=== PATIENT | male | born 1965 | race Caucasian/White ===

== ENCOUNTER → 2017-08-30 10:05 | Emergency (ER) | payer OTHER ==
[2017-08-30 10:14] VITALS: BP 159/86
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
== END | disposition home or self-care (01) ==
LOC: ED 10:05
DX: B02.9 Zoster without complications (principal); F17.220 Nicotine dependence, chewing tobacco, uncomplicated
CPT/HCPCS: 99282

== ENCOUNTER 2017-09-04 14:47 | Emergency (ER) | payer OTHER ==
[2017-09-04 16:29] LABS: Hematocrit 43 % (42-52); Hemoglobin 14.3 g/dl (14.0-18.0); Mean Corpuscular HGB Conc 33 g/dl (31-36); Mean Corpuscular Hemoglobin 29 pg (27-31); Mean Corpuscular Volume 87 fL (80-94); Mean Platelet Volume 7 um3 (7.4-10.4); Red Blood Count 4.96 10^6/ul (4.0-5.4); Red Cell Distribution Width 18 % (10.5-15)
[2017-09-04 16:43] LABS: Albumin 4.2 g/dL (3.2-5.2); BUN/Creatinine Ratio 12.6 (8-20); Calcium 9.7 mg/dL (8.6-10.3); EGFR African American 67.1 (>60); EGFR Non-African American 52.1 (>60); Globulin 3.8 g/dL (2-4); Potassium 4.6 mmol/L (3.5-5.0); Total Bilirubin 0.4 mg/dL (0.2-1.0)
[2017-09-04 17:17] LABS: Erythrocyte Sed Rate 36 mm/Hr (0-20)
[2017-09-04 17:57] VITALS: BP 151/106
[2017-09-04 18:02] LABS: Urine Bilirubin Negative (Negative); Urine Glucose Negative (Negative); Urine Nitrite Negative (Negative)
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
== END 2017-09-04 17:56 | disposition home or self-care (01) ==
LOC: ED 14:47
DX: B02.9 Zoster without complications (principal); B20 Human immunodeficiency virus [HIV] disease; B02.29 Other postherpetic nervous system involvement; R21 Rash and other nonspecific skin eruption
CPT/HCPCS: 36415; 80053; 81003; 85025; 85652; 99282

== ENCOUNTER 2017-10-25 15:40 | Emergency (ER) | payer OTHER ==
[2017-10-25 16:33] VITALS: BP 131/96
--- NOTE | 2017-10-25 17:22 | UC ---
Skin Complaint HPI - HPI Summary HPI Summary: Patient presents with an unremarkable past medical history. He presents today with complaints of residual pain from shingles on his left side. He reports that the areas have healed but he continues to have pain. 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 He states that the bites itch and he would like some medication to stop some of the itching. He denies any fever, chills, chest pain abdominal pain, nausea, vomiting, diarrhea, joint pain. - History of Current Complaint Chief Complaint: UCSkin Time Seen by Provider: 10/25/17 17:04 Stated Complaint: BED BUGS/ SHINGLES Hx Obtained From: Patient Onset/Duration: Gradual Onset Skin Exposure Onset/Duration: Weeks Ago Timing: Constant Onset Severity: Moderate Current Severity: Moderate Pain Intensity: 5 Location: Diffuse - rash on left side two insect bites noted one center of chest , and one left side. Character: Pruritus, Painful Aggravating Factor(s): Touch Alleviating Factor(s): OTC Meds Associated Signs & Symptoms: Positive: Negative - Allergy/Home Medications Allergies/Adverse Reactions: Allergies Allergy/AdvReac Type Severity Reaction Status Date / Time No Known Allergies Allergy Verified 10/25/17 16:33 Review of Systems Constitutional: Negative Skin: Rash, Other - insect bites Eyes: Negative ENT: Negative Respiratory: Negative Cardiovascular: Negative Gastrointestinal: Negative Genitourinary: Negative Motor: Negative Neurovascular: Negative Musculoskeletal: Negative Neurological: Negative Psychological: Negative Is Patient Immunocompromised?: No All Other Systems Reviewed And Are Negative: Yes PMH/Surg Hx/FS Hx/Imm Hx Previously Healthy: Yes - Surgical History Surgical History: Yes Surgery Procedure, Year, and Place: appy - Family History Known Family History: Positive: Other - father - shingles - Social History Occupation: Employed Full-time Lives: Alone Alcohol Use: None Substance Use Type: None Smoking Status (MU): Never Smoked Tobacco Type: Smokeless Tobacco Physical Exam Triage Information Reviewed: Yes Appearance: Well-Appearing Vital Signs: Initial Vital Signs Temp 98.6 F 10/25/17 16:29 Pulse 85 10/25/17 16:29 Resp 22 10/25/17 16:29 BP 131/96 10/25/17 16:29 Pulse Ox 98 10/25/17 16:29 Vital Signs Reviewed: Yes Eye Exam: Normal ENT Exam: Normal Neck exam: Normal Neck: Positive: 1 Respiratory Exam: Normal Cardiovascular Exam: Normal Abdominal Exam: Normal Musculoskeletal Exam: Normal Neurological Exam: Normal Psychological Exam: Normal Skin Exam: Other - healed herpetic rash on left side, with no evidence of infection. two small red erthemtous, round macular are on chest and left side with no surrounding induration or flucuance. Course/Dx - Course Course Of Treatment: Patient healed shinges treated with lidocaine topical, he was already treated for the shingles and presents for post-herpetic neuralgia. Tien wa RX for insect bites. He understands that he need to fumagaite his entire living quarters to eliminate the bedbugs. He had no evidence of skin infection or cellulitis. He verbalized understanding of and was in agreement with the discharge plan. - Differential Diagnoses - Skin Complaint Differential Diagnoses: Other - shingles insect bite - Diagnoses Provider Diagnoses: shingles. insect bites Discharge - Discharge Plan Condition: Stable Disposition: HOME Prescriptions: diPHENhydraMINE PO* [Benadryl PO 25 MG TAB*] 25 mg PO Q6H PRN #14 tab PRN Reason: itching Lidocaine 4% TOPICAL* 1 applic .SEE ORDER BID #100 ml Patient Education Materials: Shingles (ED), Bed Bugs (ED) Referrals: Non Staff,Doctor [Primary Care Provider] -
== END 2017-10-25 17:45 | disposition home or self-care (01) ==
LOC: UCEAST 15:40
DX: B02.9 Zoster without complications (principal); S20.369A Insect bite (nonvenomous) of unspecified front wall of thorax, initial encounter; W57.XXXA Bitten or stung by nonvenomous insect and other nonvenomous arthropods, initial encounter; Y93.9 Activity, unspecified; Y92.9 Unspecified place or not applicable
CPT/HCPCS: 99212; G0463

== ENCOUNTER → 2019-03-17 10:51 | Emergency (ER) | payer OTHER ==
[~2019-03-17 10:51] MED LIST: Acetaminophen TAB* 325 MG PO ONE; NS 0.9% 1000 ML** 1,000 ML IV ONE
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
[2019-03-17 13:19] LABS: ABS Lymphocytes 1.2 10^3/ul (1.0-4.8); ABS Monocytes 0.4 10^3/ul (0-0.8); ABS Neutrophils 1.6 10^3/ul (1.5-7.7); Eosinophil % 0.1 %; Hematocrit 51 % (42-52); Hemoglobin 17.3 g/dL (14.0-18.0); Lymphocyte % 36.7 %; Mean Corpuscular HGB Conc 34 g/dL (31-36); Mean Corpuscular Hemoglobin 29 pg (27-31); Mean Corpuscular Volume 85 fL (80-94); Mean Platelet Volume 7.1 fL (7.4-10.4); Nucleated Red Blood Cells % 0.5; Platelet Count 159 10^3/uL (150-450); Red Blood Count 6.01 10^6 /uL (4.18-5.48); Red Cell Distribution Width 14 % (10-15); White Blood Count 3.2 10^3/uL (3.5-10.8)
[2019-03-17 13:38] LABS: ALT 30 U/L (7-52); AST 23 U/L (13-39); Albumin 4.1 g/dL (3.2-5.2); Albumin/Globulin Ratio 1.1 (1-3); Alkaline Phosphatase 64 U/L (34-104); Anion Gap 8 mmol/L (2-11); BUN/Creatinine Ratio 18.6 (8-20); Blood Urea Nitrogen 21 mg/dL (6-24); C Reactive Protein < 1.00 mg/L (<8.01); CO2 Carbon Dioxide 21 mmol/L (22-32); Calcium 8.8 mg/dL (8.6-10.3); Chloride 99 mmol/L (101-111); EGFR African American 82.1 (>60); EGFR Non-African American 67.9 (>60); Globulin 3.6 g/dL (2-4); Glucose 88 mg/dL (70-100); Potassium 4.6 mmol/L (3.5-5.0); Sodium 128 mmol/L (135-145); Total Protein 7.7 g/dL (6.4-8.9)
[2019-03-17 14:08] LABS: TSH (Thyroid Stimulating Horm) 3.1 mcIU/mL (0.34-5.60)
[2019-03-17 14:46] LABS: Creatine Kinase 71 U/L (10-223)
[2019-03-17 15:54] LABS: Urine Appearance Clear; Urine Bilirubin Negative (Negative); Urine Blood Negative (Negative); Urine Color Amber; Urine Glucose Negative (Negative); Urine Ketones Trace (Negative); Urine Nitrite Negative (Negative); Urine Protein Negative (Negative); Urine Specific Gravity 1.025 (1.010-1.030); Urine Urobilinogen Negative (Negative)
[2019-03-17 16:53] VITALS: BP 128/84
== END | disposition home or self-care (01) ==
LOC: ED 10:51
DX: R53.83 Other fatigue (principal); R06.02 Shortness of breath; R50.9 Fever, unspecified; Z87.891 Personal history of nicotine dependence
CPT/HCPCS: 36415; 71046; 80053; 81003; 82550; 83605; 83735; 83880; 84443; 84484; 85025; 85379; 86140; 87040; 93005; 96360; 96361; 99283; A9270-GY